=== PATIENT | male | born 1990 | race Caucasian/White ===

== ENCOUNTER 2024-08-07 21:58 | Emergency (ER) | payer BC ==
[2024-08-07 22:07] VITALS: RESP 18
[2024-08-07] MEDS: FLUORESCEIN STRIPS 1 MG STRIP RIGHT EYE ONE (22:20)
--- NOTE | 2024-08-07 22:31 | ED ---
Eye Problem HPI - General Chief complaint: Eye Problems Stated complaint: L Eye Problems Time Seen by Provider: 08/07/24 22:08 Source: patient, RN notes reviewed Mode of arrival: ambulatory Limitations: no limitations - History of Present Illness Initial comments: This is a 34-year-old male presenting for left eye pain (10/09) x 1 hour. Patient states he was driving home from work when he began experiencing sudden onset pain with associated forehead, blurred vision and light sensitivity. Endorses increased pain with blinking and with eye movement. 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 Endorses history of similar sensation due to foreign body following exposure at work. Endorses history of amniotic membrane implant in left eye in 2019 without complication. Denies use of glasses and/or contacts. Denies loss of visual field, nausea/vomiting. MD chief complaint: eye pain, vision change, foreign body Onset/Timin -: hour(s) Onset Description: sudden Location: left eye Place: street/outdoors Eye Symptoms: burning, redness, pain, foreign body sensation, blurry vision, photophobia, other (epiphora) Severity scale (1-10): 7 If Pain, Quality: sharp Consistency: constant Associated Symptoms: none Treatments Prior to Arrival: none - Related Data Previous Rx's Medication Instructions Recorded Cyclobenzaprine [Flexeril] 1 - 2 tab PO TID #20 tablet 06/08/15 Ibuprofen [Motrin] 600 mg PO Q6HR PRN #40 day 06/08/15 Erythromycin Ophth Oint [Romycin 1 applic LEFT EYE QID #3.5 gm 08/07/24 Ophth Oint] Allergies Allergy/AdvReac Type Severity Reaction Status Date / Time No Known Allergies Allergy Verified 08/07/24 22:07 Review of Systems ROS Statement: Those systems with pertinent positive or pertinent negative responses have been documented in the HPI. ROS Other: All systems not noted in ROS Statement are negative. Past Medical History Past Medical History: Asthma History of Any Multi-Drug Resistant Organisms: None Reported Past Surgical History: No Surgical Hx Reported Additional Past Surgical History / Comment(s): Amniotic membrane transfer to left eye Past Psychological History: No Psychological Hx Reported Smoking Status: Vaper Past Alcohol Use History: None Reported Past Drug Use History: Marijuana General Exam Limitations: no limitations General appearance: alert, in no apparent distress Head exam: Present: atraumatic, normocephalic, normal inspection Eye exam: Present: PERRL, EOMI, conjunctival injection, other (Positive diffuse epiphora without thick discharge. Snellen chart: Left20/25, right20/20. Tonometer: Left14, right18. Sequeira lamp reveals circular corneal abrasion at 12 o'clock position over iris). Absent: scleral icterus, periorbital swelling Pupils: Present: normal accommodation ENT exam: Present: normal exam, mucous membranes moist Neck exam: Present: normal inspection. Absent: tenderness, meningismus, lymphadenopathy Respiratory exam: Present: normal lung sounds bilaterally. Absent: respiratory distress, wheezes, rales, rhonchi, stridor Cardiovascular Exam: Present: regular rate, normal rhythm, normal heart sounds. Absent: systolic murmur, diastolic murmur, rubs, gallop, clicks GI/Abdominal exam: Present: soft, normal bowel sounds. Absent: distended, tenderness, guarding, rebound, rigid Extremities exam: Present: normal inspection, full ROM, normal capillary refill. Absent: tenderness, pedal edema, joint swelling, calf tenderness Back exam: Present: normal inspection Neurological exam: Present: alert, oriented X3, CN II-XII intact Psychiatric exam: Present: normal affect, normal mood Skin exam: Present: warm, dry, intact, normal color. Absent: rash Course Vital Signs 08/07/24 22:03 Temperature 97.6 F Pulse Rate 86 Respiratory 18 Rate Blood Pressure 112/74 O2 Sat by Pulse 96 Oximetry Procedures - Forgein Body Removal Eye Site: Left Location in eye(s): Upper eyelid Anesthetic Used: Proparacaine Eye Exam Technique: Sequeira Lamp Foreign Body Suspected: Other Forgein Body Removal Technique: Cotton Swab Remaining Debris: No Patient Tolerated: no complications Additional Comments: Patient notes significant pain relief following removal of foreign body adhered beneath left upper eyelid. Medical Decision Making - Medical Decision Making Was pt. sent in by a medical professional or institution (LARRY Huizar, [employer], urgent care, hospital, or usp...) When possible be specific @ -No Did you speak to anyone other than the patient for history (EMS, parent, family, police, friend...)? What history was obtained from this source @ -No Did you review nursing and triage notes (agree or disagree)? Why? @ -I reviewed and agree with nursing and triage notes Were old charts reviewed (outside hosp., previous admission, EMS record, old EKG, old radiological studies, urgent care reports/EKG's, usp records)? Report findings @ -No old charts were reviewed Differential Diagnosis (chest pain, altered mental status, abdominal pain women, abdominal pain men, vaginal bleeding, weakness, fever, dyspnea, syncope, headache, dizziness, GI bleed, back pain, seizure, CVA, palpatations, mental health, musculoskeletal)? @ -Retained foreign body, corneal abrasion, open angle glaucoma, iritis, scleritis, conjunctivitis, cluster headache, this is not an exhaustive list EKG interpreted by me (3pts min.). @ -Not done X-rays interpreted by me (1pt min.). @ -None done CT interpreted by me (1pt min.). @ -None done U/S interpreted by me (1pt. min.). @ -None done What testing was considered but not performed or refused? (CT, X-rays, U/S, labs)? Why? @ -None What meds were considered but not given or refused? Why? @ -None Did you discuss the management of the patient with other professionals (professionals i.e. , PA, [employer], lab, RT, psych nurse, social media assistant, general intern, teacher, motor equipment commanding officer, hospice case manager)? Give summary @ -No Was smoking cessation discussed for >3mins.? @ -No Was critical care preformed (if so, how long)? @ -No Were there social determinants of health that impacted care today? How? (Homelessness, low income, unemployed, alcoholism, drug addiction, transportation, low edu. Level, literacy, decrease access to med. care, penitentiary, rehab)? @ -No Was there de-escalation of care discussed even if they declined (Discuss DNR or withdrawal of care, Hospice)? DNR status @ -No What co-morbidities impacted this encounter? (DM, HTN, Smoking, COPD, CAD, Cancer, CVA, ARF, Chemo, Hep., AIDS, mental health diagnosis, sleep apnea, morbid obesity)? @ -None Was patient admitted / discharged? Hospital course, mention meds given and route, prescriptions, significant lab abnormalities, going to OR and other pertinent info. @ -Foreign body visualized and removed beneath the left upper eyelid with patient noting significant relief following procedure. Visual acuity and tonometer readings WNL bilaterally. Sequeira lamp reveals corneal abrasion over iris. Patient provided with mycin ointment with additional ointment sent to patient's pharmacy. Patient provides thanks for assistance and relief. Discussed patient with Dr. Acosta. Undiagnosed new problem with uncertain prognosis? @ -No Drug Therapy requiring intensive monitoring for toxicity (Heparin, Nitro, Insulin, Cardizem)? @ -No Were any procedures done? @ -Foreign body removed from left upper eyelid. See procedure note Diagnosis/symptom? @ -Left eye foreign body, corneal abrasion Acute, or Chronic, or Acute on Chronic? @ -Acute Uncomplicated (without systemic symptoms) or Complicated (systemic symptoms)? @ -Uncomplicated Side effects of treatment? @ -No Exacerbation, Progression, or Severe Exacerbation? @ -No Poses a threat to life or bodily function? How? (Chest pain, [place], [place], pneumonia, PE, COPD, DKA, ARF, appy, cholecystitis, CVA, Diverticulitis, Homicidal, Suicidal, threat to staff... and all critical care pts) @ -No Disposition Clinical Impression: Corneal abrasion, Foreign body of left eye Disposition: HOME SELF-CARE Condition: Good Instructions (If sedation given, give patient instructions): Corneal Abrasion (ED), Eye Foreign Body (ED) Additional Instructions: Alternate Tylenol/Motrin every 4 hours for pain. Follow-up with PCP/ophthalmology for any ongoing or worsening symptoms. Prescriptions: Erythromycin Ophth Oint [Romycin Ophth Oint] 1 applic LEFT EYE QID #3.5 gm Is patient prescribed a controlled substance at d/c from ED?: No Referrals: None,Stated [Primary Care Provider] - 1-2 days Audie Foley MD [STAFF PHYSICIAN] - 1-2 days Stacy Mercer MD [STAFF PHYSICIAN] - 1-2 days Time of Disposition: 22:31
[2024-08-07] MEDS: ERYTHROMYCIN 5 MG/GM OPHTH OINT 1 GM TUBE LEFT EYE STA (22:57)
[2024-08-07 23:01] VITALS: BP 114/79; PULSE 79; TEMP 97.7
== END 2024-08-07 23:45 | disposition home or self-care (01) ==
LOC: EC 21:58
DX: T15.02XA Foreign body in cornea, left eye, initial encounter (principal); F17.290 Nicotine dependence, other tobacco product, uncomplicated; W44.9XXA Unspecified foreign body entering into or through a natural orifice, initial encounter
CPT/HCPCS: 65220; 99283